=== PATIENT | female | born 1965 | race Caucasian/White ===

== ENCOUNTER 2021-04-04 00:02 | Emergency (ER) | payer OTHER ==
[~2021-04-04] VITALS: Ht 170.2 cm; Wt 54.0 kg
[2021-04-04] MEDS ORDERED: SYNTHROID75 MCG (00:22)
[2021-04-04] MEDS ORDERED: KETO10TA2 PO (01:21)
== END 2021-04-04 01:57 ==
LOC: ER 00:02
DX: S69.82XA Other specified injuries of left wrist, hand and finger(s), initial encounter (principal)